=== PATIENT | male | born 1985 | race Caucasian/White ===

== ENCOUNTER 2018-10-04 08:47 | Emergency (ER) | payer OTHER, SELFPAY ==
[2018-10-04 08:48] VITALS: BP 124/81; PULSE 57; RESP 16; TEMP 36.8; O2SAT 98
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
--- NOTE | 2018-10-04 09:14 | ED.DEP ---
ED Disposition - Plan for ED Patient: Instructions: ED Sprain Thoracic Spine Prescriptions: Naproxen [Naprosyn] 500 mg PO BID PRN #20 tab Cyclobenzaprine [Flexeril] 10 mg PO TID PRN #20 tab PRN Reason: Muscle Spasm Referrals: Richelle Allred MD [STAFF PHYSICIAN] - 5-7 Days
== END 2018-10-04 09:37 | disposition home or self-care (01) ==
LOC: ED 09:32
PROVIDERS: Emergency Provider Emergency Medicine
DX: S29.012A Strain of muscle and tendon of back wall of thorax, initial encounter (principal); X58.XXXA Exposure to other specified factors, initial encounter; Y93.9 Activity, unspecified; Y92.9 Unspecified place or not applicable; Y99.9 Unspecified external cause status; Z72.0 Tobacco use
CPT/HCPCS: 99282